=== PATIENT | male | born 2000 | race African-American/Black ===

== ENCOUNTER 2022-05-04 16:32 | Emergency (ER) | payer MEDICAID ==
[~2022-05-04] VITALS: Ht 167.6 cm; Wt 82.0 kg
[~2022-05-04 16:32] MED LIST: FAMO-135 MT; IBUP-2028 MT
[2022-05-04] MEDS ORDERED: IBUP-2029 MT (17:35)
[2022-05-04] MEDS ORDERED: AMOX-494 MT (17:35)
[2022-05-04] MEDS ORDERED: IBUPROFEN 600MG TABLET PO ONE (17:45)
[2022-05-04] MEDS ORDERED: AMOXICILLIN 500 MG CAPSULE PO ONE (17:45)
[2022-05-04 18:15] VITALS: BP 156/81
== END 2022-05-04 18:17 | disposition home or self-care (01) ==
LOC: ER 16:32
DX: H66.91 Otitis media, unspecified, right ear (principal); R03.0 Elevated blood-pressure reading, without diagnosis of hypertension
CPT/HCPCS: 99283